=== PATIENT | female | born 1980 | race Caucasian/White ===

== ENCOUNTER 2020-06-27 14:57 | Outpatient (REF) | payer MEDICAID, SELFPAY | END 2020-06-27 14:58 | disposition home or self-care (01) | LOC: HO.HOSX 14:57 | PROVIDERS: Visit Provider Orthopaedic Surgery | DX: Z13.89 Encounter for screening for other disorder (principal) ==

== ENCOUNTER → 2020-07-04 08:10 | Outpatient (BNVA) | payer MEDICAID, OTHER, SELFPAY | PROVIDERS: Visit Provider Orthopaedic Surgery | DX: M22.2X2 Patellofemoral disorders, left knee (principal) | CPT/HCPCS: 99202 ==

== ENCOUNTER 2020-09-21 13:00 | Outpatient (RCR) | payer OTHER, MEDICAID, SELFPAY ==
--- NOTE | 2020-08-02 11:15 | MHC.PT.EP ---
[facility] [place] Office [place] Office [place] Office [address] Mary Velazquez [address] [phone] F: [phone] F: [phone] F: [phone] F: [phone] Physical Therapy Plan of Care Date of Evaluation: 08/01/20 Date of Surgery: Diagnosis: PATELLOFEMORAL SYNDROME RIGHT KNEE Assessment: 40 YO FEMALE REF TO PT FOR RIGHT PFPS W H/O SUSTAINING A FALL AT WORK ONTO JAVIER KNEES ON Jan- SHE HAS BEEN OOW SINCE- SHE HAS HAD AN MRI AND A RECENT ORTHO CONSULT. OBJECTIVELY, Pt HAS LIMITED AROM Lt LE, (+) PELVIC ASYMM W LLI, DECR STRENGTH IN HER CORE AND Lt LE (PAIN IS AN INFLUENCING FACTOR), AND FLUCTUATING PAIN PATTERN IN Lt L/S-> Lt HIP-> Lt HS AND ANT PATELLAR SORENESS. SHE DENIES BOWEL/ BLADDER S&SXS AT THIS TIME. FUNCTIONALLY, Pt IS LIMITED W OVERALL WT BEARING ON Lt LE, STANDING, GAIT IS SIGNIF ANTALGIC W TOE TOUCH/ BRIEF STANCE PHASE Lt LE (SHE PRESENTED FOR EVAL W/O ASST DEVICE, BUT SHE NOTES SHE HAS A CANE AT HOME); DECR STAIR MGMT, AND VERY GUARDED W TRANSITIONAL MVMTS. OVERALL DECREASED ACTIVITY TOLERANCE IN COMPARISON TO PRIOR TO 02/25/20- Pt WAS INDEP AND WORKING REGULAR DUTY. SHE WOULD BENEFIT FROM PT FOR HER Lt PFPS AND SECONDARY SACROILIAC DYSFUNCTION TO ADDRESS THE ABOVE FINDINGS AND ASSIST HER IN REGAINING HER FUNCTIONAL INDEPENDENCE, ULTIMATELY RTW. Frequency and Duration: The patient will be seen 2x WK x 5 WKS Short Term Goals: DECR Pt'S Lt LE/ LS PAIN TO A 2-3/ 10 IN 3 WKS Pt DEMON IMPROVED GAIT MECH LEVEL AND STAIRS W LEAST RESTR ASST DEVICE x 2 WKS IMPROVE PELVIC SYMM AND Lt HIP AROM IN 2 WKS [facility] Goals: Pt INDEP W HEP AND SELF-SX MANAGEMENT IN 5 WKS Pt DEMON WFL AROM AND FUNCTIONAL STRENGTH IN TRUNK, LEFT LE IN 5 WKS Pt'S LEFT SCORE IMPROVED BY 10 POINTS (AT EVAL 29/80) IN 5 WKS Treatment Plan: Modalities to reduce pain, spasms and effusion. Manual therapy to restore motion and function. Therapeutic exercise to improve strength and flexibility. Neuromuscular re-education for posture and balance. Therapeutic activities to return to functional activities of daily living. Electronically signed by: Meliza Mejias PT Please sign and return to therapist. Thank you for your referral.
--- NOTE | 2020-09-21 14:05 | MHC.PT.DC ---
[facility] [place] Office [place] Office [place] Office [address] Mary Velazquez [address] [phone] F: [phone] F: [phone] F: [phone] F: [phone] Physical Therapy Discharge Report Diagnosis: PATELLOFEMORAL SYNDROME RIGHT KNEE Date of Surgery: Date of Evaluation: 08/24/20 Date of Discharge: 09/21/20 Treatments to Date: 14 Cancellations to Date: 0 No Shows to Date: 0 Discharge Status: Achieved Goals Improved Function Independent with HEP Discharge Summary: Pt MET PT GOALS AT THIS TIME AND PLANS TO F/U W ORTHO FOR CLEARANCE W RTW NEXT WEEK. Pt DEMON PROPER SQUATTING/ WORK SIMUL LIFTING FORM, WFL GAIT MECHANICS AND RECIPROCAL TECHN ON THE STAIRS, WFL STRENGTH IN LEFT LE, AND WFL TRUNK AND LEs AROM. Pt IS INDEP W HEP AND REMAINS MOTIVATED W INCREASING HER FUNCTIONAL MOBILITY. Electronically signed by: Meliza Mejias,PT Please sign and return to therapist. Thank you for your referral.
== END 2020-09-21 14:07 | disposition other institution (70) ==
LOC: HO.PTCHIC 13:00
PROVIDERS: Visit Provider Physician Assistant
DX: M22.2X9 Patellofemoral disorders, unspecified knee (principal)
CPT/HCPCS: 97110; 97112; 97116; 97140; 97162; 97530

== ENCOUNTER 2020-09-27 08:16 | Outpatient (REF) | payer OTHER, MEDICAID, SELFPAY ==
--- NOTE | ~2020-09-27 | XR_ITS ---
EXAMINATION: XR KNEE STANDING, BILATERAL XR KNEE, LEFT CLINICAL INFORMATION: Pain. COMPARISON: Left knee MRI dated 05/23/2020. TECHNIQUE: AP standing view of the right and left knee. Lateral and sunrise view of the left knee. FINDINGS: No acute fracture or dislocation. No joint space narrowing or marginal osteophytes. No osseous erosion. No abnormal soft tissue calcification. No significant joint effusion. XR/XR knee standing BI IMPRESSION: Unremarkable examination.
--- NOTE | ~2020-09-27 | XR_ITS ---
EXAMINATION: XR KNEE STANDING, BILATERAL XR KNEE, LEFT CLINICAL INFORMATION: Pain. COMPARISON: Left knee MRI dated 05/23/2020. TECHNIQUE: AP standing view of the right and left knee. Lateral and sunrise view of the left knee. FINDINGS: No acute fracture or dislocation. No joint space narrowing or marginal osteophytes. No osseous erosion. No abnormal soft tissue calcification. No significant joint effusion. XR/XR knee LT 2V IMPRESSION: Unremarkable examination.
== END 2020-09-27 08:17 | disposition home or self-care (01) ==
LOC: HO.HOSX 08:16
PROVIDERS: Visit Provider Orthopaedic Surgery
DX: M22.2X2 Patellofemoral disorders, left knee (principal); M25.561 Pain in right knee
CPT/HCPCS: 73560; 73565; 99212